=== PATIENT | male | born 1940 | race Caucasian/White ===

== ENCOUNTER 2018-09-02 16:54 | Emergency (ER) | payer MEDICARE ==
[~2018-09-02] VITALS: Ht 188 cm; Wt 84.8 kg
[2018-09-02] MEDS ORDERED: SYNTHROID88 MCG PO (17:10)
== END 2018-09-02 18:15 | disposition home or self-care (01) ==
LOC: ED 16:54
DX: H53.9 Unspecified visual disturbance (principal); E11.9 Type 2 diabetes mellitus without complications; E03.9 Hypothyroidism, unspecified; Z87.891 Personal history of nicotine dependence; Z79.899 Other long term (current) drug therapy
CPT/HCPCS: 99283

== ENCOUNTER 2018-10-24 21:08 | Emergency (ER) | payer MEDICARE ==
[~2018-10-24] VITALS: Ht 188 cm; Wt 84.8 kg
[~2018-10-24 21:08] MED LIST: SYNTHROID88 MCG PO
[2018-10-24] MEDS ORDERED: MELOXICAM15 MG PO (23:28)
[2018-10-24] MEDS ORDERED: PERCOCET 5-3251 EACH PO (23:28)
== END 2018-10-24 23:39 | disposition home or self-care (01) ==
LOC: ED 21:08
DX: M54.42 Lumbago with sciatica, left side (principal); E11.9 Type 2 diabetes mellitus without complications; E03.9 Hypothyroidism, unspecified; Z87.891 Personal history of nicotine dependence; Z79.899 Other long term (current) drug therapy; Z88.5 Allergy status to narcotic agent
CPT/HCPCS: 72131; 96372; 99283-25; J1885

== ENCOUNTER 2018-11-26 14:39 | Emergency (ER) | payer MEDICARE ==
[~2018-11-26] VITALS: Ht 188 cm; Wt 84.8 kg
[~2018-11-26 14:39] MED LIST changes: +MELOXICAM15 MG PO; +PERCOCET 5-3251 EACH PO
== END 2018-11-26 16:12 | disposition home or self-care (01) ==
LOC: ED 14:39
DX: K56.41 Fecal impaction (principal); E11.9 Type 2 diabetes mellitus without complications; E03.9 Hypothyroidism, unspecified; Z88.5 Allergy status to narcotic agent; Z79.899 Other long term (current) drug therapy
CPT/HCPCS: 99283

== ENCOUNTER 2019-07-15 06:25 | Day surgery (SDC) | payer MEDICARE ==
--- NOTE | 2019-07-14 14:23 | EKG ---
[facility] [address] [facility] [place] [address] Signed Normal sinus rhythm Right bundle branch block Left anterior fascicular block Bifascicular block Abnormal ECG No previous ECGs available Confirmed by JASPREET HUFF MD ([id number]) on 07/14/2019 2:23:29 PM Electronically Signed By: JASPREET HUFF MD 07/14/19 1423 PATIENT NAME: POLI ROSS Electrocardiogram DATE OF : 36 PHYSICIAN: JASPREET HUFF MD REPORT #: [id number] REPORT IS CONFIDENTIAL AND NOT TO BE RELEASED WITHOUT AUTHORIZATION
[~2019-07-15] VITALS: Ht 185.4 cm; Wt 88.9 kg
[~2019-07-15 06:25] MED LIST changes: +LASIX20 MG PO; +LOSARTAN POTAS100 MG PO
--- NOTE | 2019-07-15 08:17 | NUR ---
07/15/19 0817 Maria Dolores Tong 0808- PT ARRIVES TO PACU AROUSABLE WITH AN OPA IN PLACE. ATTEMPTED TO REMOVE PT'S OPA. PT DOES NOT FOLLOW INSTRUCTIONS AND HAS THE OPA CLUNCHED BETWEEN HIS TEETH. OPA LEFT IN PLACE AT THIS TIME. PT IS COUGHING AND MOVING HIS ARMS. OXYGEN SAT HIGH 90'S TO 100% ON 10L VIA MASK. OXYGEN TURNED DOWN TO 6L VIA MASK. 0811- ATTEMPTED TO REMOVE OPA AGAIN PT CONTINUES TO COUGH AND ACT ANNOYED ABOUT THE OPA BEING IN HIS MOUTH. PT CONTINUES TO NOT FOLLOW COMMANDS AND OPA IS CLUNCHED BETWEEN HIS TEETH. OPA LEFT AT THIS TIME. PT PASSING LARGE AMOUNTS OF FLATUS. 0814- OPA REMOVED WITH ASSISTANCE FROM BRAN SALEEM CRNA. OXYGEN TITRATED OFF. PT UPDATED THAT HE IS IN THE RECOVERY ROOM. PT REMAINS VERY DROWSY. 0817- PT CONTINUES TO COUGH AND PASS FLATUS.
--- NOTE | 2019-07-16 09:49 | OR ---
[facility] [address] [place], [place] [address] Signed DATE OF OPERATION: 07/15/2019 SURGEON: Bran Velasquez MD PREOPERATIVE DIAGNOSES: 1. History of rectal bleeding. 2. Significant dementia. POSTOPERATIVE DIAGNOSES: 1. Sigmoid diverticulosis. 2. Internal hemorrhoids (large nonbleeding). PROCEDURE: Total colonoscopy to cecum. ANESTHESIA: Intravenous sedation, propofol infusion; Bran Roque CRNA. INDICATION: This 79-year-old white man is a patient of Dr. Garza and has known and significant dementia. He had episodes of rectal bleeding in November of 2018. More recently, he has had no bleeding. He has no pain upon defecation. 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 He is admitted at this time to undergo colonoscopy on the basis of his bleeding. He understands the risks of bleeding, infection, and perforation. FINDINGS: The prep was excellent. Complete colonoscopy was undertaken to the cecum without question. He had scattered small diverticula of the sigmoid and left colon. There were no polyps and no sign of cancer or colitis. He did have internal hemorrhoids, which were large, but not bleeding currently. DESCRIPTION OF PROCEDURE: The patient was brought to the surgery endoscopy suite and placed in lateral decubitus position, given intravenous sedation with propofol infusional technique by the automotive parts counter associate with full cardiopulmonary monitoring. Digital rectal examination was normal. An Olympus video colonoscope was passed in the rectum and manipulated through the sigmoid where a small diverticula were noted. The scope was ultimately advanced to the cecum. The ileocecal valve appeared normal. The scope was withdrawn from that point Electronically Signed By: BRAN VELASQUEZ MD 07/16/19 0949 PATIENT NAME: POLI ROSS OPERATIVE REPORT DATE OF : 36 REPORT #: [id number] PHYSICIAN: BRAN VELASQUEZ MD PCP: SANTOS GARZA MD REPORT IS CONFIDENTIAL AND NOT TO BE RELEASED WITHOUT AUTHORIZATION [facility] [address] [place], [place] [address] Signed and examination throughout showed no sign of abnormality other than the diverticula of the left colon and sigmoid, which were few in number and small in size. Retroflexed view of the rectum confirmed relatively large internal hemorrhoids. No sign of polyps or cancer. The scope was removed. The patient was taken to recovery room in good condition. CONCLUDING DIAGNOSIS: Diverticula and internal hemorrhoids. PLAN: Recommend high-fiber diet and/or Citrucel fiber supplement. He will return to the ongoing care of Dr. Garza. MD GARETH Wheeler/MODL /[id number] cc: Santos Garza MD Copies: ~ Electronically Signed By: BRAN VELASQUEZ MD 07/16/19 0949 PATIENT NAME: POLI ROSS OPERATIVE REPORT DATE OF : 36 REPORT #: [id number] PHYSICIAN: BRAN VELASQUEZ MD PCP: SANTOS GARZA MD REPORT IS CONFIDENTIAL AND NOT TO BE RELEASED WITHOUT AUTHORIZATION
== END 2019-07-15 08:50 | disposition home or self-care (01) ==
LOC: OPS 06:25 → DS 06:25 → OPS 06:45 → DS 06:45 → OPS 08:50 → DS 08-02 07:30
PROVIDERS: Surgery
PROC: 0DJD8ZZ Inspection of Lower Intestinal Tract, Via Natural or Artificial Opening Endoscopic (ICD-10-PCS; principal; 2019-07-15 06:45)
DX: K64.8 Other hemorrhoids (principal); K57.30 Diverticulosis of large intestine without perforation or abscess without bleeding; F03.90 Unspecified dementia, unspecified severity, without behavioral disturbance, psychotic disturbance, mood disturbance, and anxiety; I25.10 Atherosclerotic heart disease of native coronary artery without angina pectoris; E03.9 Hypothyroidism, unspecified; I10 Essential (primary) hypertension; Z95.1 Presence of aortocoronary bypass graft; Z88.0 Allergy status to penicillin; Z88.5 Allergy status to narcotic agent; Z79.899 Other long term (current) drug therapy; Z82.49 Family history of ischemic heart disease and other diseases of the circulatory system; Z98.890 Other specified postprocedural states; Z87.891 Personal history of nicotine dependence
CPT/HCPCS: 36415; 71046; 80053; 85025; 93005; 93010; J2704; J7121

== ENCOUNTER 2019-08-09 16:17 | Emergency (ER) | payer MEDICARE ==
[~2019-08-09] VITALS: Ht 185.4 cm; Wt 88.9 kg
--- NOTE | 2019-08-10 10:58 | EKG ---
[facility] [address] [place] [address] Signed Sinus bradycardia Left axis deviation Right bundle branch block Abnormal ECG When compared with ECG of 13-JUL-2019 15:10, No significant change was found Confirmed by JASPREET HUFF MD ([id number]) on 08/10/2019 10:57:56 AM Electronically Signed By: JASPREET HUFF MD 08/10/19 1058 PATIENT NAME: POLI ROSS Electrocardiogram DATE OF : 36 PHYSICIAN: JASPREET HUFF MD REPORT #: [id number] REPORT IS CONFIDENTIAL AND NOT TO BE RELEASED WITHOUT AUTHORIZATION
== END 2019-08-09 19:50 | disposition home or self-care (01) ==
LOC: ED 16:17 → ER 16:18 → ED 19:50
DX: R10.13 Epigastric pain (principal); E11.9 Type 2 diabetes mellitus without complications; E03.9 Hypothyroidism, unspecified; Z87.891 Personal history of nicotine dependence; Z88.0 Allergy status to penicillin; Z88.5 Allergy status to narcotic agent; Z79.899 Other long term (current) drug therapy
CPT/HCPCS: 71045; 74177; 80053; 81001; 83690; 84484; 85025; 93005; 93010; 99284-25

== ENCOUNTER 2020-11-13 19:26 | Inpatient (IN) | payer MEDICARE ==
[~2020-11-13] VITALS: Ht 185.4 cm; Wt 92.4 kg
--- NOTE | 2020-11-13 22:35 | EKG ---
[facility] [address] [place] [address] Signed Normal sinus rhythm Left axis deviation Right bundle branch block Abnormal ECG When compared with ECG of 09-AUG-2019 17:34, Vent. rate has increased BY 41 BPM Confirmed by JAKE MELGAR MD ([id number]) on 11/13/2020 10:34:52 PM Electronically Signed By: JAKE MELGAR MD 11/13/20 2235 PATIENT NAME: POLI ROSS STACIA Electrocardiogram DATE OF : 36 PHYSICIAN: JAKE MELGAR MD REPORT #: [id number] REPORT IS CONFIDENTIAL AND NOT TO BE RELEASED WITHOUT AUTHORIZATION
[2020-11-13] MEDS ORDERED: LASIX20 MG PO (23:24)
[2020-11-13] MEDS ORDERED: LEVOTHYROXINE25 MC1 PO (23:24)
--- NOTE | 2020-11-14 01:20 | NUR ---
PT TO ROOM 115 FROM ED WITH NUT AND BOLT ASSEMBLER AT 2345. PT DAUGHTER UP TO FLOOR WITH PT. PT PLEASANTLY CONFUSED. UNABLE TO ANSWER ORIENTATION QUESTIONS. 3PA TO TRANSFER FROM STRETCHER TO BED, PT ASHLEIGH WELL. SCD'S PLACED TO RIGHT LEG. PT PLACED ON PULSE OX. SpO2 NOTED TO BE 88-91% ON RA. 2L/NC PLACED. 16 F MCMILLAN PLACED BY CONFERENCE CENTER MANAGER WITH IMMEDIATE RETURN OF CLEAR YELLOW URINE. PT ASHLEIGH WELL. PT GRABBING LEFT HIP AND MOANING. PRN ADMINISTERED FOR PAIN PER EMAR. LLE CMS INTACT. WARM BLANKET PROVIDED. PT DAUGHTER BACK TO ROOM BUT IS NOT STAYING THE NIGHT. PT NOTED TO BE PULLING AT IV'S AND MCMILLAN CATH. CONSUMER INSIGHT MANAGER TO DESK FOR OBSERVATION.
--- NOTE | 2020-11-14 01:30 | NUR ---
THIS LIVESTOCK BUYER TO ASSUME OBSERVATION OF PT FOR RN, PT RESTING AT THIS TIME, DAUGHTER LEAVING FOR THE NIGHT
--- NOTE | 2020-11-14 02:14 | NUR ---
OBSERVED PT MOVING HANDS AROUND, PULSEOX PULLED OFF, THIS BODY AND FENDER MECHANIC AND RN DONNING PPE TO GET INTO RM, PT PULLED ON IV BEFORE I COULD STOP HIM, FIXED PTs GOWN, PUT AN EXTRA BLANKET DOWN TO PREVENT PT PULLING OUT MCMILLAN CATH, NO FURTHER NEEDS AT THIS TIME
--- NOTE | 2020-11-14 02:38 | NUR ---
PULSE OX NOTED TO BE OFF. IN TO PT ROOM TO ASSESS. PT FOUND TO BE PULLING GOWN, BLANKET, AND IV. ATTEMPTED TO REDIRECT FROM DOOR WAY. PPE DONNED AND BY THE TIME THIS RN AND DOOR AND ARRIVAL ATTENDANT WERE ABLE TO ENTER ROOM PT HAD PULLED IV FROM LEFT FOREARM. TIP INTACT. IV FLUIDS MOVED TO RIGHT HAND. IV WRAPPED IN COBAN. PT MOANING AND GRABBING LEFT HIP. PRN ADMINISTERED FOR PAIN. PULSE OX IN PLACE. MCMILLAN PATENT DRAINING YELLOW URINE. BED ALARM FOR SAFETY. DOOR AND ARRIVAL ATTENDANT AT DESK TO OBSERVE.
--- NOTE | 2020-11-14 03:00 | NUR ---
PT FIGETY AND THIS AEROSPACE QUALITY ENGINEER NOTED PULSEOX UNEVEN, IN RM TO CHECK ON PT, PUT PTs NC ON MULTPLE TIME AND SAT WITH PT UNTIL PT WAS RESTING AGAIN, RETURN TO OBSERVING FROM NURSING STATION, NO FURTHER NEEDS
--- NOTE | 2020-11-14 03:58 | NUR ---
IN TO SIT WITH PT PT WAS FIGETY AGAIN, NASAL CANNULA REAPPLIED TO PT, PT ATTEMPTS TO PULL AT MCMILLAN CATH, REDIRECTING PT EACH TIME, LEFT RM TO RESUME WATCH AT NURSING STATION AT THIS TIME
--- NOTE | 2020-11-14 05:00 | NUR ---
THIS CAN DOFFER CONTINUES TO MONITOR PT FROM NURSING KRISTA, PT IS RESTING, RR EVEN
--- NOTE | 2020-11-14 05:08 | NUR ---
PT RESTING IN BED WITH EYES CLOSED, NAD. SpO2 97% ON 2L/NC. IVF INFUSING. MCMILLAN PATENT.
--- NOTE | 2020-11-14 05:45 | NUR ---
IN WITH RN TO GET VITALS, EMPTY MCMILLAN, ASSIST RN WITH LAB DRAW, NO FURTHER NEEDS AT THIS TIME, PT IS BACK TO RESTING
--- NOTE | 2020-11-14 06:29 | NUR ---
VS AND I&O COMPLETE. PRN ADMINISTERED FOR ELEVATED TEMP AND SIGNS OF PAIN. SCHEDULED LABS DRAWN PER PROTOCOL BY BUNKER WORKER. PT REMAINS PLEASANTLY CONFUSED. IVF INFUSING. 2L/NC IN PLACE. SpO2 98%. BED ALARM FOR SAFETY. PT IN VIEW OF NURSES STATION.
--- NOTE | 2020-11-14 06:45 | NUR ---
PT REMAINS IN VIEW OF THIS ENGINEERING AND DEVELOPMENT DIRECTOR, PT IS RESTING AT THIS TIME
--- NOTE | 2020-11-14 07:50 | NUR ---
Spoke with Dr Harper about dc plan for this patient. Pt is covid + and there are 3 SNFs in 500 mile radius taking Covid pt. confirms pt will need placement for 6-8 weeks for NWB status following surgery. Pt more than likely will discharge on Friday or Friday. Will contact SNFs for placement. also needs to speak with daughter to explain surgery and have consents signed. Will set up conference at 5:30 when is available to meet.
--- NOTE | 2020-11-14 07:53 | NUR ---
REPORT RECEIVED FROM MIRTHA LEES. PT IN BED, VISIBLE FROM NURSING STATION. BED ALARM IN PLACE FOR SAFETY AND CPOX ON. SATURATIONS 97% ON 2L NC. LR INFUSING AT 75ML/HR. PULSE IS 60. RESPIRATIONS EQUAL AND NON-LABORED. FOELY IN PLACE.
--- NOTE | 2020-11-14 08:29 | NUR ---
DR BROWN IN TO ROUND ON PT.
--- NOTE | 2020-11-14 09:38 | NUR ---
ASSESSMENT COMPLETED. LUNGS CLEAR, BOWEL TONES HYPOACTIVE. ABDOMEN SLIGHLY DISTENDED/FIRM PT YELLS OUT "OUCH" WHEN PRESSURE IS PLACED ON ABDOMEN. PT UNABLE TO REPORT WHEN LAST BOWEL MOVEMENT WAS. CATHIE-CARE DONE. REDNESS NOTED TO LEFT LOWER BLACK WITH SCAILING PRESENT. PT APPEARS PAINFUL WITHMOVEMENT BUT IS UNABLE TO PROVIDED PAIN RATING. NON-VERBAL SCORE OF 5/10. REPOSITIONING PROVIDED BUT NO PAIN MEDICATION PT FALLS ASLEEP WHEN NOT INTERACTING WITH STAFF. TOSHIA HOSE PLACED BILATERALLY, AND FOOT PUMP TO LEFT FOOT. IMAGING IN FOR ULTRASOUND TO LOWER EXTREMITIES. REMDESIVIR INFUSED AND PT NOW WITH LR INFUSING AT 75ML/HR. HEEL PROTECTORS PLACED. 2L NC STILL IN PLACE. BED ALARM IN PLACE.
[2020-11-14] MEDS ORDERED: COLACE100 MG PO (09:45)
[2020-11-14] MEDS ORDERED: STROVITE FORTE1 EACH PO (09:45)
[2020-11-14] MEDS ORDERED: LOW DOSE ASPIRI81 MG PO (09:49)
[2020-11-14] MEDS ORDERED: MOTION SICKNESS25 M1 PO (09:49)
--- NOTE | 2020-11-14 10:18 | NUR ---
PT NOTED TO BE RESTLESS IN BED, SQUIRMING AND FIDGETING AROUND. THIS NURSE TO BEDSIDE AND PT GRABBING AT LEFT LEG SAYING "OUCH". NON-VERBAL SCALE USED TO RATE PAIN. PAIN IS 5/10 PER SCALE. PRN MEDICATION ADMINISTERED. BED ALARM ON. OFFERED WATER WHICH PT REFUSED.
--- NOTE | 2020-11-14 10:27 | NUR ---
Received call from daughter Ashley and she is available to meet with Dr. Harper at 5:30 and updated about pt needing SNF. [facility] is [facility]. I had spoken with them on Friday and they were closing their unit due to staff and not accepting pts. Will check with [facility], [facility], and [facility] [place] for [facility]. Daughter preference is [place] first, [place] second for placement.
--- NOTE | 2020-11-14 11:20 | NUR ---
REPOSITIONED PT TO RIGHT SIDE WITH TWO PILLOWS UNDER LEFT SIDE.
--- NOTE | 2020-11-14 11:59 | NUR ---
MED REC COMPLETE
--- NOTE | 2020-11-14 12:20 | NUR ---
PT RESTLESS IN BED HOLDING LEG. PRN OFIMEV ADMINSTERED. LR DECREASED TO 50ML/HR PER NEW ORDER. CPOX IN PLACE. SATURATIONS 97% ON 2L NC. BED ALARM IN PLACE. VISIBLE FROM NURSING STATION.
--- NOTE | 2020-11-14 13:50 | NUR ---
DUE TO PRECAUTIONS, I AM UNABLE TO VISIT PT IN PERSON. HE IS SCHEDULED FOR SURGERY. WILL FOLLOW UPON HIS RETURN
--- NOTE | 2020-11-14 14:00 | NUR ---
IN TO ROUND ON PT. REAL ESTATE SUBAGENT IN T OASSIST IN REPOSITIONING. PT APPEARS COMFORTABLE WITH BODY RELAXED. ABX STARTED. ASSESSMENT COMPLETED. TEDHOSE, SCD/FOOT PUMP IN PLACE. MCMILLAN DRAINING YELLOW URINE. CRACKLES ASCULTATED ON RLL OF LUNG. PT REMOVED OXYGEN. SPO2 AT 86-89% WITH VITALS. 2L REPLACED. SPO2 NOW 98%. BED ALARM IN PLACE. PT HAS NOT ATTEMPTED TO EXIT BED THIS SHIFT. VITALS STABLE. VISIBLE FROM NURSING STATION.
--- NOTE | 2020-11-14 16:00 | NUR ---
Called and left message for Eamon at [facility]. [phone] and requested bed availability. I was unable to reach Eamon, but was able to speak with Emily and she stated they do have bed availability. Eamon will return my call, they do take Covid + pt and have rehab.
--- NOTE | 2020-11-14 16:48 | NUR ---
PT NOTED TO BE CALLING OUT AND SQUIRMING IN BED. THIS NURSE TO BEDSIDE. PT UNABLE TO ANSWER IF IN PAIN BUT CALLING OUT,"OUCH, OUCH" HOLDING ONTO LOWER ABDOMEN AND PENIS. WHEN ASKED WHERE HE HURT PT PUT HANDS ON BLABBER AREA AND PENIS, STATING "HERE". PT BLADDER SCANNED. O MLS IN BLADDER. SCANT AMOUNT OF PURUENT DRAINAGE NOTED FROM PENIS TIP. CATHIE CARE COMPLETED. PT REPOSITIONED IN BED AND FENTANYL 25MCG ADMISNTERED. BED ALARM ON AND PT VISIBLE FROM NURSING STATION.
--- NOTE | 2020-11-14 16:55 | NUR ---
PT NOTED TO HAVE BRADICARDIC EPISODES WHILE SLEEPING, DOWN TO 41 AT TIMES. TO BEDSIDE TO ASSESS PT. VITALS TAKEN AND BLOOD PRESSURE STABLE. PT WOKE UP EASY AND HEART RATE RETURNED TO 70-80'S THEN BRADYS DOWN ONCE ASLEEP. DR MELGAR NOTIFIED. ORDERS TO JUST MONITOR.
--- NOTE | 2020-11-14 18:14 | NUR ---
PT CALLING OUT, GRABBING AT LEFT HIP. PRN ORIRMEV ADMINISTERED. REPOSITIONED PT IN BED. TEDHOSE, SCD'S, HEEL PROTECTORS ALL IN PLACE. LR AT 50 INFUSING WNL. 2L NC IN PLACE SPO2 AT 99%. VITALS TAKEN AND STABLE. FEOLEY EMPTIED FOR 150ML YELLOW URINE. BED ALARM IN PLACE. VISIBLE FROM NURSING STATION.
--- NOTE | 2020-11-14 19:43 | NUR ---
REPORT RECEIVED FROM DAY SHIFT RN. PT LYING IN BED WITH EYES CLOSED. RESPIRATIONS EVEN. IVF INFUSING. O2 2L/NC IN PLACE. SpO2 98%. BED ALARM ON. MEDIA LAW FACULTY MEMBER AT DESK FOR CLOSE OBSERVATION.
--- NOTE | 2020-11-14 20:00 | NUR ---
Pt repositioned to left side, with pillow support. block cath. care done. no further assitance needed at this time.
--- NOTE | 2020-11-14 20:14 | NUR ---
IV PUMP ALARMING. NEW BAG FLUIDS HUNG. REPOSITIONED PT WITH PILLOWS. PT APPEARES TO BE COMFORTABLE AT THIS TIME. SCD'S/TEDS/HP IN PLACE. HIPOLITO PATENT. LLE CMS INTACT.
--- NOTE | 2020-11-14 20:45 | NUR ---
Pt removed nasal canula, this staff placed the NC back in nose. Pt c/o pain, RN notified. Telly battery replaced. No further assistance at this time.
--- NOTE | 2020-11-14 21:14 | NUR ---
EVENING ASSESSMENT COMPLETE. SCHEDULED IV ABX INFUSING. PT REPEATS "OW, OW". PRN FOR PAIN ADMINISTERED PER EMAR. TEMP 100. HR 48-51. 2L/NC IN PLACE. Sp02 91%. PT APPEARS TO BREATH MOSTLY THROUGH HIS MOUTH. LLE CMS INTACT. SCD'S/TEDS/HP IN PLACE. ASSISTED PT TO REPOSITION IN BED AND DRINKS OF FRESH WATER.
--- NOTE | 2020-11-14 21:52 | NUR ---
pt repositioned to right side, with pillow support. CPOX replaced. no further assistance needed at this time.
--- NOTE | 2020-11-14 23:21 | NUR ---
Pt repositioned supine. displaying signs of pain. rn notified.
--- NOTE | 2020-11-14 23:55 | NUR ---
PT NOTED TO HAVE TENSE FACIAL EXPRESSIONS AND RESTLESS IN BED. ALSO SAYS "OW, OW" OCCASIONALLY AND GUARDS LEFT HIP. IV PRN ADMINISTERED FOR PAIN ORDERED. ASSISTED PT TO REPOSITION IN BED WITH 2PA. PT REPORTS BEING COLD. TEMP 98.6 ORALLY. WARM BLANKET PROVIDED. PT APPEARS COMFORTABLE AND RESTING AT THIS TIME. PT IN VIEW OF GALLERY OR MUSEUM ATTENDANT FOR CLOSE OBSERVATION.
--- NOTE | 2020-11-15 01:00 | NUR ---
PT RESTING IN BED WITH EYES CLOSED. RESPIRATIONS EVEN. IVF INFUSING. SpO2 96-98% ON 2L/NC. HR 60'S.
--- NOTE | 2020-11-15 03:37 | NUR ---
Pt repositioned, left micro turn. pillow support.
--- NOTE | 2020-11-15 03:53 | NUR ---
PT SHOWING SIGNS OF PAIN. IV PRN FOR PAIN ADMINISTERED PER EMAR. PT REPOSITIONED IN BED. IVF INFUSING. PULSE OX IN PLACE. SpO2 97% ON 2L/NC. RESPIRATIONS EVEN. SCD'S/TEDS/HP IN PLACE. LLE CMS INTACT. PT REMAINS NPO.
--- NOTE | 2020-11-15 06:02 | NUR ---
SCHEDULED LABS DRAWN WITHOUT DIFFICULTY. PT ASHLEIGH WELL. REPOSITIONED IN BED WITH 2PA. ASSISTED WITH ORAL CARE. IV ABX INFUSING. IV PRN ADMINISTERED FOR SIGNS OF LEFT HIP PAIN. BARREL RIBS SOLDERER REMAINS AT DESK FOR CLOSE OBSERVATION.
--- NOTE | 2020-11-15 06:08 | NUR ---
ATTEMPT TO CALL pt'S DAUGHTER TO DISCUSS DECISION FOR SURGERY. MD AND SURGERY NURSES PHONED AND UPDATED THAT NO DECISION HAS BEEN RELAYED TO [facility].
--- NOTE | 2020-11-15 07:01 | NUR ---
PHONE CALL FROM pt'S DAUGHTER ARA. FAMILY DECIDED TO DECLINE SURGICAL INTERVENTION. DAY SURGERY NABEEL RODRIGUEZ NOTIFIED. ATTEMPT TO CALL MD, NO ANSWER, VOICEMAIL LEFT.
--- NOTE | 2020-11-15 07:01 | NUR ---
Notified by Dr. Yao Harper as I was leaving the hospital last night, he met with pt's daughter. Daughter and are now considering no surgery for this pt and placing him on comfort care. Will follow up with family today.
--- NOTE | 2020-11-15 07:26 | NUR ---
PHONE CALL FROM MD TO NABEEL SHANNON. TELEPHONE ORDER TO ADVANCE DIET TOLERATED. MD WILL CALL AND CANCEL SURGERY.
--- NOTE | 2020-11-15 07:30 | NUR ---
RESPONDING TO PATIENTS CRIES pt heard crying out from his room at this time, this RN right outside the door. pt crying out " oh! ohhh! Ow! oh come on!" when asked if he was in pain, pt responds with "yes! oh man, ow!" pt continues crying out, grimacing and squirming in his bed. pt HR in the 70s, BP 146/115 (he won't be still for measurement), RR 22, spo2 88% on 2L NC, and afebrile at this time. pt given PRN pain med as ordered. pt oxygen titrated up to 4L NC. pts o2 is 93% on 4L NC, BP 132/42 (65), HR 50, RR 18, and pt is no longer crying out, still spontaneously opens eyes, and responds to verbal stimuli. pt now resting in bed, breathing even and unlabored, call light in reach, bed alarm on.
--- NOTE | 2020-11-15 08:00 | NUR ---
PATIENTS OXYGEN TITRATED BACK DOWN AT THIS TIME now that pain is controlled for the time. pts o2sats taken and pt is 98% on 4L NC. pt titrated down to 2L NC at this time, pt maintains >94% oxygen for over one min at 2L NC. pt in bed, table and call light in reach. bed alarm on. pt visible from nurses station.
--- NOTE | 2020-11-15 09:00 | NUR ---
MED PASS + ASSESSMENT pt assessment complete, at this time. pt VSS, breathing even and unlabored. pt 02sats 91% on 2L NC, oxygen not titrated down at this time. pt alert but orientation not testable due to dementia. pt can greet and answer some questions, but inconsistently. pt able to have fentnyl patch applied to left shoulder. pt able to take PRN tylenol and other pills crushed and in applesauce. pt able to take all meds this way, without difficulty, after failing to be able to swallow one tab (pt had continued to accidentally spit the tablet out when trying to drink from the straw, no coughing or choking, just seemingly confused by the task). pt able to eat about 40% of his breakfast of minced softened eggs, sausage, and applesauce at this time. pt able to grab the water and drink by himself, but inconsistently. pt able to grab his spoon, but not to feed himself at this time. pt currently in bed, resting with eyes closed, breathing even and unlabored, no grimace or writhing at this time, table and call light in reach, bed alarm on, pt visible from nurses station.
--- NOTE | 2020-11-15 09:41 | NUR ---
SPOKE WITH PATIENT DAUGHTER ARA GRIER REGARDING DC FROM FACILITY CARE PLAN. ARA STATES THAT HER AND FAMILY WILL BE CONTACTING LOCAL CARE FACILITIES TODAY TO EXPLORE LOCAL PLACEMENT AFTER DISCHARGE IN [place]. ARA STATES HAS FOUND THAT THE PATIENT DOES NOT HAVE SECONDARY INSURANCE COVERAGE AT THIS TIME. ARA AND I DISCUSSED LENGTH OF STAY AVAILABLE AT [facility] IS DEPENDENT ON THE PATIENTS ABILITY TO PARTICIPATE IN PT FOLLOWING A 20 DAY ADMISSION FOR COVID 19. ARA ADVISED THAT I WOULD FAX PAPERWORK TO MERGED WITH [facility] TODAY AND UPDATE HER SOON WE HAVE AN ANSWER. ARA REQUEST NOTES FAXED TO [facility] FOR HELP WITH PAYMENT OF PATIENTS ER VISIT.
--- NOTE | 2020-11-15 10:00 | NUR ---
ROUNDING (NURSE IN ROOM WITH PATIENT) pt appears content and relaxed at this time. pt has on his fentny patch and had PRN tylenol, this appears to be controlling his pain at this time. pt breathing even and unlabored, table and call light in reach. o2sats >93% on 2L NC. pt forgets that he needs it on and sometimes tries to remove the oxgen tubing. pt also will wake at times and pull at his IV site. pt easily redirects. pt occasionally will fidget and attempt to reach for his block tubing. pt redirects. pt in bed, bed alarm on, pt visible from nurses station.
--- NOTE | 2020-11-15 10:30 | NUR ---
FACE SHEET, H&P, PROGRESS NOTES AND COVID TEST RESULTS FAXED TO [facility] IN [facility] FOR INTAKE REVIEW.
--- NOTE | 2020-11-15 11:58 | NUR ---
LUNCH (NURSE IN THE ROOM WITH PATIENT) pts lunch arrived. pt refuses to feed himself, but will take a few bites of his pudding and soup from me, also will drink his milk when offered. pt alert and calm at this time, watching TV. pt attempts to talk at different times, sometimes speech is appropriate to context and other times is non-sensible. pt currently sitting up in bed, having lunch. pt refuses more bites at this time. table and call light in reach, bed alarm on. pt visible from nurses station.
--- NOTE | 2020-11-15 12:35 | NUR ---
1:1 WITH PATIENT WHILE HIS 1:1 IS AT LUNCH. PATIENT IN BED WATCHING TV. THIS RUG CLIPPER IS OFFERING HIS FOOD AND WATER
--- NOTE | 2020-11-15 13:05 | NUR ---
TURN + NEW CHUCKS PAD (NURSE IN ROOM WITH PATIENT 1:1) in room with pt at this time. pt alert and appears calm and unbothered at this time. pt sitting up in bed, [employer] SALES REPRESENTATIVE informs me that he finished 100% of his lunch while I was out. pt given new fresh water. pt turned and x1 BM smear cleaned up at this time, new chucks pad placed. pt repositioned in bed to comfort. pt resting in bed, semi-fowlers, alert, watching TV at this time. pt pulls at his IV, easily redirected. pt fidgets with his nasal cannula, NC replaced and pt redirected. pt showing no s/sx of being in pain at this time, facial expressions peaceful, no moaning or calling out, arms and legs at rest. pt o2sat 93% on 2L NC at this time. pt in bed, bed alarm on, this RN at bedside.
--- NOTE | 2020-11-15 13:10 | NUR ---
PER PERNELL AT [facility] CHART NOTES RECVD FOR PATIENT PLACEMENT. CHART CURRENTLY IN REVIEW WITH FACILITIES DNS. PERNELL STATES THEY WILL CALL WHEN A DECISION HAS BEEN MADE.
--- NOTE | 2020-11-15 13:54 | NUR ---
PATIENT SHIFT REPORT pt being treated for pain control post left humerus fracture from a GLF. pts surgery cancelled and plan currently is to tx pain. pt is on 2L NC today, desats with sleep at times. pt Q2 turns. pt has fentanyl patch on his left shoulder and PRN tylenol. pt takes tablets crushed in applesauce. pt off IVF and drinking adequately at this time. pt has had x2 smears for us today, but unknown last BM. pt VSS, HR between 50s-70s at rest. pt on tele #1 CPOX. pt Covid +, precautions used. pt had been alert and pleasant with cares today, disoriented due to baseline dementia. pt is voiding quantity sufficient at this time, though on the lower end of output.
--- NOTE | 2020-11-15 14:00 | NUR ---
ASSESSMENT pt assessment complete, VSS. pt o2sats 94% on 2L NC at this time. pt breathing even and unlabored. pt appears calm and undistressed at this time. pt turned in bed at this time, pillow under opposite hip. pt tolerated well. pt resting in bed, table and call light in reach. pt getting IV ABX infused as ordered. pt resting now with eyes closed, breathing even and unlabored, table and call light in reach. Bed alarm on, pt visible from nurses station. this RN at bedside.
--- NOTE | 2020-11-15 14:58 | NUR ---
PT UNDER PRECAUTIONS, WILL FOLLOW ABLE
--- NOTE | 2020-11-15 15:29 | NUR ---
Spoke with Mike from [facility]. Pt has been cleared by their nursing staff and he is requesting auth from the State as they contract with the state to take covid pts. He states pt should be able to admit to them on Friday if he receives ok from the state. Discussed daughter's dc plan is for pt to return home or possible admit to hospice on discharge from SNF. Per Mike, pt may admit for 20 days from date of + Covid swab and then will need to dc if he is symptom free from Covid. Daughter was made aware of the above and states understanding. She also states she would like to transport him in her SUV.
--- NOTE | 2020-11-15 15:44 | NUR ---
ROUNDING (NURSE IN ROOM WITH PATIENT) pt appears content and relaxed at this time. pt has on his fentny patch and this appears to be controlling his pain at this time. pt breathing even and unlabored, table and call light in reach. o2sats >94% on 2L NC. pt forgets that he needs it on and sometimes tries to remove the oxgen tubing. pt also will wake at times and pull at his IV site. pt easily redirects. pt occasionally will fidget and attempt to reach for his block tubing. pt redirects. pt in bed, bed alarm on, pt visible from nurses station.
--- NOTE | 2020-11-15 16:29 | NUR ---
ROUNDING (NURSE IN ROOM WITH PATIENT) pt appears content and relaxed at this time. pt has on his fentanyl patch and this appears to be controlling his pain at this time. pt breathing even and unlabored, table and call light in reach. o2sats >94% on 2L NC. pt forgets that he needs it on and sometimes tries to remove the oxgen tubing. pt also will wake at times and pull at his IV site. pt easily redirects. pt occasionally will fidget and attempt to reach for his block tubing. pt redirects. pt in bed, bed alarm on, pt visible from nurses station.
--- NOTE | 2020-11-15 17:47 | NUR ---
DINNER + TURN (RN IN ROOM WITH PATIENT) pt able to eat about 80% of his dinner. pt was unable to consistently feed himself, but was able to eat well with feeding. pt showing no signs of difficulty swallowing. pt repositioned in bed, turned at this time. pt appears calm and slightly restless at this time, making occasional moans. PRN tylenol given at this time. pt able to take med crushed in gravy. pt given fresh water. pt in bed, table and call light in reach. bed alarm on. RN in room with patient.
--- NOTE | 2020-11-15 18:35 | NUR ---
ROUNDING + TURN (THIS RN IN ROOM WITH PATIENT) pt turned at this time. repositioned to comfort. pt appears calm and showing no s/sx of being in pain at this time. pt VSS. pt resting in bed, eyes closed, breathing even and unlabored. table and call light in reach, bed alarm on. pt visible from nurses station, this RN at bedside with pt.
--- NOTE | 2020-11-15 19:34 | NUR ---
PATIENT RESTINNG QUIETLY IN BED AWAKE. PATIENT HAS NO CURRENT CARE NEEDS AND NABEEL SWANSON IS ON 1:1 WITH PATIENT AT THIS TIME.
--- NOTE | 2020-11-15 20:21 | NUR ---
Pt repositioned, micro turn to the right. pillow support.
--- NOTE | 2020-11-15 21:53 | NUR ---
PATIENT CONFIRMED THAT HE IS COMFORTABLE VERBALLY. PATIENT TURNED TO HIS BACK, SCD ON RIGHT LEG AND FOOT PUMP ON THE LEFT FOOT. IV FLUSHES WELL AND EVENING ANTIBIOTIC STARTED. UNABLE TO LISTEN TO BOWEL AND LUNG SOUNDS DUE TO WEARING PAPR. PATIENT'S SATS AT 97% RESPIRATIONS ARE UNLABORED, REGULAR, AND EVEN. RT JUST FINISHED ASSESSING PATIENT AND NO TREATMENTS GIVEN. YFN ARNOLD CONTINUES TO MONITOR PATIENT 1:1.
--- NOTE | 2020-11-15 22:58 | NUR ---
PATIENT'S IV WAS ALARMIMG DISTAL OCCLUSION. WENT IN PATIENT'S ROOM IN PAPR. ASSESSED PATIENT'S IV AND GOT IT STARTED AGAIN. PATIENT HAD NO OTHER NEEDS AT THIS TIME AND CONFIRMED VERBALLY THAT HE WAS COMFORTABLE. YFN ARNOLD CONTINUES TO MONITOR PATIENT 1:1.
--- NOTE | 2020-11-16 00:30 | NUR ---
Pt repositioned, micro turn right, with bilateral pillow support. f/c care done. bed alarm on, bed in lowest position. no further assitance needed at this time.
--- NOTE | 2020-11-16 01:26 | NUR ---
PATIENT RESTING QUIETLY, EYES CLOSED, RESPIRATIONS REGULAR AND EVEN, CALL LIGHT IS IN REACH. PATIENT REMAINS ON 1:1 WITH YFN ARNOLD OBSERVING.
--- NOTE | 2020-11-16 01:50 | NUR ---
THIS RN ASSUMING 1:1 CARE FOR YFN ARNOLD SO SHE CAN GO TO LUNCH. PATIENT'S ASSESSMENT IS UNCAHNGED FROM THE BEGINING OF THE SHIFT. 02 SATS REMAIN AT 97% ON ROOM AIR.
--- NOTE | 2020-11-16 02:30 | NUR ---
Pt repositioned, supine, weight shifted body alighned center in bed. Pt calling out in pain prior to reposition. c/o pain in leg. rn notified. pt removed nc. NC put back in nose. bed alarm on, no further assistance at this time.
--- NOTE | 2020-11-16 03:26 | NUR ---
PATIENT VERBALIZED TO YFN ARNOLD THAT HE WAS HURTING. PATIENT WAS ASLEEP BY THE TIME THIS RN GOT TO THE ROOM WITH TYLENOL 1,000MG PO. WENT IN THE ROOM AND TALKED TO THE PATIENT WHO WOKE UP QUICKLY AND PATIENT VERBALIZED TO THIS RN WELL THAT HE WAS HURTING AND THE TYLENOL WAS GIVEN CRUSHED UP IN SOME DIET PUDDING AND PATIENT TOOK IT WITHOUT DIFFICULTY. REPOSITION PATIENT'S LEG A LITTLE IN THE BED AND ASKED PATIENT IF THE PAIN WAS BETTER AND HE SAID YES. I ASKED PATIENT IF HE NEEDED ANYTHING ELSE AND HE SAID NO. EXITED PATIENT'S ROOM AND YFN ARNOLD REMAINS ON 1:1 OBSERVATION.
--- NOTE | 2020-11-16 06:06 | NUR ---
PT REPOSITIONED TO [facility] AND TURNED RIGHT WITH PILLOW SUPPORT. NEW CHUX. PT MOANING IN PAIN. RN NOTIFIED
--- NOTE | 2020-11-16 06:40 | NUR ---
[id number] ENTERED ROOM WITH YFN ARNOLD STILL PRESENT IN THE ROOM. PATIENT'S SATS HAD DROPPED TO 75% ON 2L/NC, O2 INCREASED TO 6L/NC AND SATS CAME UP TO 86%. SWITCHED TO OXYMASK AT 6L AND SATS CAME UP TO 97%. YNF ARNOLD HELPED HOLD PATIENT'S HAND SO THIS RN COULD DRAW AM LABS. PATIENT PULLED UP IN THE BED AND REPOSITIONED. PATIENT HAVING C/O PAIN SINCE I ENTERED THE ROOM. LEAVING ROOM TO CONTACT MD FOR PAIN ORDERS PATIENT HAS NO OTHER MEDS AT THIS TIME FOR BREAK THROUGH PAIN.
--- NOTE | 2020-11-16 07:00 | NUR ---
pt calling out in pain. pt removed oximask. this staff placed oximask back on pt, pulled pillow from left side and elevated the hob ten degrees. pt appears to be comfortable, but pt is still verbally c/o pain. RN notified. BA on, call light in reach, bed in lowest position. no further assistance needed at this time.
--- NOTE | 2020-11-16 07:02 | NUR ---
CALLED FOR SOMETHING FOR PATIENT FOR BREAK THROUGH PAIN. ORDERED 5/325MG NORCO X1 Q4/HRS FOR PAIN. ALSO ORDERED 20MG IV LASIX X1 NOW.
--- NOTE | 2020-11-16 07:09 | NUR ---
CALLED BACK IT IS LISTED THAT PATIENT HAS N/V WITH NORCO AND THIS WAS CANCELLED AND 25MCG FENTNYL IV WAS ORDERED X1 NOW.
--- NOTE | 2020-11-16 07:10 | NUR ---
SHIFT REPORT FROM LIV LEES INCLUDED: pt had a 1:1 last night and will NOT have one today. pt had a fairly uneventful evening. pt had some breakthrough pain this morning, gastroenterology nurse RN currently in room giving PRN pain meds and lasix as ordered. pt breathing even and unlabored, o2sats 98% on 6L oxymask. bed alarm on. pt visible from nurses station.
--- NOTE | 2020-11-16 07:37 | NUR ---
PATIENT GIVEN 25MCG OF IV FENTANYL SIVP AND 20MG IV LASIX SIVP FOR PAIN, THEN IV WAS SALINE LOCKED. REPORT ALREADY GIVEN TO NABEEL SWANSON.
--- NOTE | 2020-11-16 08:00 | NUR ---
MED PASS + ASSESSMENT + RESPONDING TO PATIENT CRYING OUT pt crying out in pain at this time yelling "oh god! hey! oh owww please, oh god." pt cannot directly answer pain questions. pt breakfast here. pt changed and fabricio care done, no BM. pt turned at this time. pt fed by WOODS OVERSEER at this time. pt able to take all meds without difficulty. pt in bed, side rails up, bed alarm on, table and call light in reach.
--- NOTE | 2020-11-16 09:27 | NUR ---
HELPED HIM EAT AND DRINK WATER. WASHED HIS FACE AND BRUSHED HIS TEETH.
--- NOTE | 2020-11-16 10:00 | NUR ---
TURNING + REDIRECTING pt had pulled off his oxygen at this time, 02sats down to 85%. pts oxygen reapplied and pt redirected. pt lifted in bed and turned and positioned to comfort at this time by this RN and charge nurse Stephanie LEES. pt in bed, table and call light in reach, bed alarm on. pt given water to drink at this time, until he refused more.
--- NOTE | 2020-11-16 11:00 | NUR ---
REDIRECTING AND REAPPLYING OXYGEN AT THIS TIME pt had removed much of his clothes and was fidgeting with his block. pts oxygen cannula was removed as well. pts gown and blankets reapplied to protect the block. pts oxygen tube reapplied at this time and pt redirected. pt positioned to comfort. pt given water to drink, until pt refused more. pt in bed, table and call light in reach, bed alarm on, pt visible from nurses station.
--- NOTE | 2020-11-16 11:31 | NUR ---
CBG CHECKED AT THIS TIME pt is voiding more today than all of yesterdays shift. concerned for polyuria, since pt is a diabetic. CBG was 198. pt has no other obvious concerns or needs at this time. pt in bed, table and call light in reach, bed alarm on, pt visible from nurses station.
--- NOTE | 2020-11-16 12:00 | NUR ---
ROUNDING TRACK REPAIR WORKER in room with pt at this time feeding him lunch. pt appears content. call light in reach, bed alarm on. breathing even and unlabored, no s/sx distress. pts o2sats 95 on 4L NC.
--- NOTE | 2020-11-16 13:27 | NUR ---
PT IS UNDER PRECAUTIONS, WILL FOLLOW ABLE
--- NOTE | 2020-11-16 13:32 | NUR ---
ROUNDING pt is resting in bed with eyes closed, breathing even and unlabored, table and call light in reach.
--- NOTE | 2020-11-16 13:45 | NUR ---
NOTIFIED BY DR MELGAR FAMILY ARE NOW CONSIDERING PT NOT GOING TO [facility] FOR COVID THEY ARE CONCERNED HE WILL BE THERE ALONE AND FAMILY WON'T BE THERE. THEY ARE CONSIDERING COMFORT CARE.
--- NOTE | 2020-11-16 14:30 | NUR ---
TURNED + FED MORE + MED PASS pt turned at this time by this RN and LAND PLANNER. pt had no BM, bottom was clean. pt repositioned in bed to comfort. pt fed more of his remaining lunch at this time. pt given meds and able to take tablets crushed and in applesauce without difficulty. pt given several more sips of water and given fresh water at this time. pt in bed, bed in lowest position, bed alarm on, call light in reach, pt visible from nurses station.
--- NOTE | 2020-11-16 15:30 | NUR ---
SPOKE WITH DAUGHTER, ARA. SHE STATES THEY ARE HAVING A HARD TIME DECIDING WHAT TO DO. DISCUSSED PLACEMENT DAUGHTER STATES IT WOULD BE DIFFICULT FOR THEM TO CARE FOR PT, BUT DO NOT WANT HIM PLACED OUT OF THE AREA. DISCUSSED ONLY PLACEMENT AVAILABLE IS [facility]IGARD AT THIS TIME. HOSPICE DICUSSED AND DAUGHTER THINKS FAMILY WOULD PREFER THIS, SHE NEEDS TO DISCUSS WITH THEM. SHE WILL CALL CM TOMORROW AND UPDATE. I WILL CALL BOTH HOSPICES AND SEE WHICH ONE CAN ADMIT FIRST. DAUGHTER WILL DISCUSS PLAN WITH MOM. DAUGHTER STATES THEY ARE NOT READY FOR PT TO PASS AND WOULD LIKE HIM TO BE ABLE TO COME HOME. i QUESTIONED HER IF THEY WANT DNR/DNI AND SHE STATES YES THEY DO NOT WANT HIM INTUBATED OR CPR. DISCUSSED OVER THE PHONE AND COMPLETED POLST THERE IS NOT A FORM IN THE CHART. DAUGHTER WILL VISIT TOMORROW AND SIGN.
--- NOTE | 2020-11-16 15:30 | NUR ---
ROUNDING pt pulled off his oxygen again. o2sats maintained around 90% on RA at this time. So pts oxygen titrated down to 1L NC at this time, and now pt is able to maintain >93% on the 1L. pt given water to drink at this time, until pt refused more. pt in bed, table and call light within reach. bed alarm on. pt visible from nurses station.
--- NOTE | 2020-11-16 16:30 | NUR ---
TURN + ROUNDING pt turned at this time. pt repositioned in bed to comfort. pt had no BM, bottom clean and dry at this time. pt given warm blankets. pt given water to drink at this time, until pt refused water. pt in bed, table and call light in reach, bed alarm on, pt visible from nurses station.
--- NOTE | 2020-11-16 16:30 | NUR ---
DISCUSSED WITH DR HUFF AND UPDATED. CHART FAXED TO [facility] WITH ORDER, FACE SHEET, H&P, NOTES. I WAS UNABLE TO CONTACT [facility]. SPOKE WITH HILDA FROM [facility] AND THEY COULD ADMIT ON FRIDAY. REQUESTED IF PT IS DISCHARGED SOON IF THEY COULD GET EQUIPMENT INTO HOME PRIOR AND SHE STATES SHE WILL DISCUSS WITH THEIR PHYSICIAN.
--- NOTE | 2020-11-16 17:30 | NUR ---
ROUNDING pt in bed, eyes closed, breathing even and unlabored, table and call light in reach. bed alarm on. o2sats >95% on 1L NC. pt visible from nurses station.
--- NOTE | 2020-11-16 19:26 | NUR ---
ELMA Love STATES THAT HE GOT VERBAL ORDERS FROM DR HUFF TO DC CPOX. ORDERS PLACED AND CCU NOTIFIED.
--- NOTE | 2020-11-16 19:30 | NUR ---
pt fidgetting with tele/CPOX. O2 off nose, repositioned, awake, pleasantly confused.
--- NOTE | 2020-11-16 21:16 | NUR ---
resting, eys closed, no resp distress, O2 NC inplace, cpox dc'd earlier. bed alarm on. On respiratory precautions, call light at hands reach
--- NOTE | 2020-11-16 22:50 | NUR ---
IN TO ASST RN WITH VITALS AND NEW IV START, NO FURTHER NEEDS AT THIS TIME FOR ME
--- NOTE | 2020-11-16 23:56 | NUR ---
ARIAN LEES ATTEMPTED IV X3. RUI LEES ATEMPTED IV X2 WITH SUCCESS IN RIGHT FOREARM. PT TOLERATED WELL. IV FLUSHED WELL. ARIAN LEES IN ROOM
--- NOTE | 2020-11-16 23:59 | NUR ---
pt on room air sats 84-86%, back on 02 2LNC, turned and repositioned, lungs dim at bases and slight crackles expiratory. f/c patent. Pt pulled sl off. will restart. scds R leg, foot pumps L leg, alexa hose on bilat. edema at L hip, good cms. edema at L ankles. very tense, semi coop. all procedures explained to pt. pleasantly confused. Unable to restart IV site, Ally LEES able to restart SL. pt tolerated well. Pt spitted melatonin off X2, crushed and given w puding. Pt unable to suck from straw. spit sips of water given. mouth care, f/c care done Pt has left O2 on. sats 97%. eyes closed, smiles and tried to asnwer, word salad noted not applicable to situation. Bed alrm on. Aspiration and fall precautions in place. IV abx infusing at this time. call light at hands reach, pt unable to use. explained, unable to comprehend.
--- NOTE | 2020-11-17 02:00 | NUR ---
AWAKE, TRYING TO TAKE DRESSING THAT WAS APPLIED TO NEW IV SITE EARLIER INT HIS SHIFT. AREA COVERED WITH COBAN, KERLIX, OMAR WRAP AND DRESSING SLEEVE. PROCEDURE EXPLAINED. COOPERATIVE BUT UNABLE TO UNDERSTAND PROCEDURE. REPOSITIONED. BED ALARM ON
--- NOTE | 2020-11-17 02:18 | NUR ---
WAS IN PT RM, TIME PIECE REPAIRER NOTED PT PULLING AT IV SITE COVERAGE, ABLE TO DISTRACT PT AND REDIRECT, ALLOWED PT TO CHAT AND LEFT RM TO MONITER PT FROM NURSE STATION UNTIL RN RETURNED TO DESK
--- NOTE | 2020-11-17 05:58 | NUR ---
pt continues on respiratory isolation, covid+. O2 sats spot checks 80-96% . O2 1LNC on at imes as he takes it off, and desats to low 80's. back to mid 90's with 1LNC. lungs dim at bases. Pleasantly confused abnd unable to follow instructions, word salad at times. L hip edema, good cms L leg, faint pulses. has been turned, tolerated wel.., Pulled IV off, and restsrted after 5 tried. no adverse raction to IV abx. new IV SL site has been covered wtih coban, kerlix and marielle wrap as he picks at site and has almost pulled out again 2x. easily redirectable. unable to follows instructions. f/c patent, draining QS, slight edema and redness of scrotum noted, no new penile drainage noted. Bilat alexa hoses in place. scds R leg, foot pumps L foot. pt spitted meds out at begining of shift.Pt unable to suck from straw, tolerating small amounts of liquids. aspiration and fall precautions in place. call light at bedside. pt
--- NOTE | 2020-11-17 06:30 | NUR ---
Pt continues on respiratory isolation, covid+. O2 sats spot checks 80-96% . 1LNC on at imes as he takes it off, and desats to low 80's. back to mid 90's with 1LNC. lungs dim at bases. Pleasantly confused abnd unable to follow instructions, word salad at times. L hip edema, good cms L leg, faint pulses has been turned, tolerated wel.., Pulled IV off, and restsrted after 5 tried no adverse raction to IV abx. new IV SL site has been covered wtih coban, kerlix and marielle wrap as he picks at site and has almost pulled out again 2x. easily redirectable. unable to follows instructions. f/c patent, draining QS slight edema and redness of scrotum noted, no new penile drainage noted. Chivo alexa hoses in place. scds R leg, foot pumps L foot. pt spitted meds out at begining of shift.Pt unable to suck from straw, tolerating small amounts of liquids. aspiration and fall precautions in place. call light at bedside. pt is pleasantly confused, all procedures explained prior to, unable to assess degree of understanding, calm, resting at this time, O2 1LNC
--- NOTE | 2020-11-17 09:16 | NUR ---
PT AWAKE IN BED. NOT ORIENTED TO SELF, DATE OR SITUATION. ALTERNATES BETWEEN FULL SENTENCES AND WORD SALAD. MORNING MEDICATIONS GIVEN W/ APPLESAUCE. REMDESIVIR INFUSING INTO IV. PT REFUSING TO WEAR O2, PULLS OFF REPEATEDLY. 89% ON ROOM AIR. VITALS STABLE OTHERWISE. CATHETER CARE COMPLETE. PT REPOSITIONED FROM RIGHT SIDE TO BACK. WILL NOT REPOSITION TO LEFT SIDE IT IS PT'S PAINFUL SIDE D/T HIP FX. AIDE IN TO FEED PT BREAKFAST.
--- NOTE | 2020-11-17 11:00 | NUR ---
SPOKE WITH PT'S DAUGHTER, ARA, ABOUT PT'S CURRENT STATUS. DAUGHTER STATES THEY ARE STILL WORKING ON MAKING A DECISION WHETHER OR NOT THEY WANT TO MOVE FORWARD WITH [facility] OR CONSULT WITH HOSPICE. EXPLAINED TO DAUGHTER THAT PT HAS NOT BEEN EATING WELL, HAS PULLED IV'S OUT AND IS NON-COMPLAINT WITH O2. PT IS ALSO UNABLE TO BEAR ANY WEIGHT ON LLE, DOES NOT TOLERATE HOB ELEVATED PAST 45 DEGREES APPROX, WITHOUT PAIN. REFERRED DAUGHTER TO CASE MANAGEMENT.
--- NOTE | 2020-11-17 11:39 | NUR ---
ATTEMPTED TO CONTACT ARA MARVEL PATIENTS DAUGHTER. NO ANSWER, LEFT MESSAGE FOR PATIENTS DAUGHTER TO RETURN CARE.
--- NOTE | 2020-11-17 12:01 | NUR ---
PT STILL UNDER PRECAUTIONS. WILL FOLLOW ABLE
--- NOTE | 2020-11-17 12:50 | NUR ---
PER PERNELL AT [facility] THE PATIENT HAS BEEN MEDICALLY ACCEPTED TO THEIR FACILITY AT THIS TIME. PERNELL STATES THAT PART OF THE ADMISSION AUTHORIZATION PROCESS IS THAT THE FACILITY SPEAK TO THE FAMILY PRIOR TO ADMISSION. PERNELL STATE HE ATTEMPTED TO CONTACT ARANiyah GRIER AND AFSHAN ROSS (PATIENTS ) WITH NO RESPONCE BACK AT THIS TIME. I ADVISED PERNELL I WILL CONTINUE TO CONTACT ARA AT THIS TIME SO SHE CAN RETURN A CALL TO THE FACILITY. WILL UPDATE DR. HUFF.
--- NOTE | 2020-11-17 13:10 | NUR ---
THIS USPS LETTER CARRIER AT BEDSIDE TO ASSIST WITH LUNCH, PATIENT ATE ABOUT 5 BITES AND DRANK MOST OF THE CHOCOLATE DRINK. PATIENT IS ABLE TO COMMUNICATE THAT HIS BUTTOCKS ARE GETTING SORE. 2PA-PILLOW UNDER LEFT HIP FOR COMFORT. CALL LIGHT IN PATIENTS LAP, BED ALARM ON FOR SAFETY
--- NOTE | 2020-11-17 14:34 | NUR ---
THIS RN SPOKE WITH PATIENT NATHEN BULLOCK REGARDING TRANSFER OF PATIENT TO [facility]. ARA STATES SHE HAS DECIDED THAT SHE WILL NOT BE ABLE TO TRANSPORT THE PATIENT AT THIS TIME AND WOULD PREFER FOR HIM TO GO BY NON EMERGANT EMS TRANSFER. ARA NOTIFIED BY THIS RN THAT MEDICARE MAY OR MAY NOT PAY FOR THE TRANSFER BY EMS, ARA STATES SHE IS AWARE AND HAS MADE FINANCIAL ARRANGEMENTS WITH IN HER FAMILY. UPDATED ARA ON PATIENTS STATUS TODAY PER LORE HARMON RN. THIS RN TO THE DOOR WAY TO OBSERVE PATIENT, PATIENT SMILED, WAVED AND GAVE A THUMBS UP. DISCUSSED WITH ARA THE WITHDRAWL OF PATIENT MCMILLAN, 02 [address] HUFF THIS AM, ARA AGREES WITH THIS PLAN. ARA WOULD LIKE TO ASK DR. HUFF IF HE WOULD BE WILLING TO OBSERVE THE PATIENT OVER THE WEEKEND FOR ANY COVID SYMPTOMS BEFORE THE PATIENT TRANSFER TO [place]. THIS RN AGREES TO SPEAK WITH DR. HUFF, BUT EXPLAINS THAT PATIENT/FAMILY MAY BE RESPONSIBLE FOR THE REMANDER OF THE PATIENTS STAY IF MEDICARE DEAMS PATIENT HAS REACHED BASELINE. AGAIN ARA STATES THAT SHE IS AWARE THAT THIS COULD BE BILLED TO THE PATIENT AND SHE HAS MADE ARRANGEMENTS WITH FAMILY TO HELP WITH PAYMENT IF NEEDED. THIS RN TO OVER TO SPEAK WITH DR. HUFF, PER VERBAL CONVERSTATION DR. HUFF AGREES TO KEEP PATIENT OVER THE WEEKEND AND PLANS FOR DISCHARGE ON FRIDAY. MESSAGE LEFT FOR ARA REGARDING DECISION. THIS RN LEFT MESSAGE FOR PERNELL AT [facility] CONFIRMING PATIENTS DISCHARGE ON FRIDAY .
--- NOTE | 2020-11-17 15:30 | NUR ---
DR HUFF IN TO SEE PT. TALKED W/ MD ABOUT NOT DC'ING MCMILLAN CATH PT IS NOT ABLE TO BEAR WEIGHT ON LLE THEREFORE UNABLE TO TRANSFER TO COMMODE W/OUT BEING EXTREMELY PAINFUL. THERE IS ALSO REDNESS IN SCROTAL AREA PUTTING PT AT HIGHER RISK FOR SKIN BREAKDOWN IF INCONTINENT W/OUT MCMILLAN. AGREED, ORDERS TO LEAVE MCMILLAN IN AT THIS TIME.
--- NOTE | 2020-11-17 18:44 | NUR ---
PT REACHING FOR WATER, IN TO ASSIST PT. REMAINS PLEASANTLY CONFUSED. VSS. NO ACUTE CHANGES AT EVENING ASSESSMENT. FENTANYL PATCH REMAIN IN PLACE TO LEFT SHOULDER. TOSHIA HOSE ON BLE AND SCD ON RLE. RFA IV SALINE LOCKED. PT LIKELY TO DC TO NURSING FACILITY ON FRIDAY. BED ALARM ON, PT DOES NOT CALL APPROPRIATELY.
--- NOTE | 2020-11-17 21:45 | NUR ---
Pt continues on airborne isolation. On room air. picking at linen and pulling at scds tubing. f/c intact. Noted pt had red cored drainage over R arm, face, gown and linen. upon further investigation noted that pt had pulled IV sometime between 2029 when this RN peeked in room to do a visual check on pt and he declined he needed anything, pleasantly confused. 2x2 applied to RFA/wrist area former IV site. arms, face cleansed with warm water, gown and linen changed. All procedures explained, unable to assess degree of assimilatin to teaching being given due to confusion and word salad. Kept mask on during process. On room air, Lungs dim at bases and fine crackles at base. f/c patent. pt looking for" hard iron between my legs". Intact, draining yellow utine, sulma and redness at scrotal area still same as yesterday. edema to ankles and L hip no changes. alexa hose and heel protectors, scds R leg, foot pumps L foot. Repositoned and turned in bed. Took meds with applesauce, Tylenol given per L hip pain. Tolerated ensure, water and apple sauce well. no s/sx cough. Fall and aspiration precautins in place. call light at hands reach. hob elevated. pt unable to use call light.
--- NOTE | 2020-11-17 22:49 | NUR ---
EYES CLOSED, HOB ELEVATED, RESTING, NO FURTHER C/O PAIN. CALL LIGHT AND FLUIDS AT BEDSIDE, ROOMING IN
--- NOTE | 2020-11-17 23:46 | NUR ---
was fidgetting with blakets earlier, calmer, no facial s/sx distress. eyes closed at this time, on room air, bed alarm on, scds in place
--- NOTE | 2020-11-18 01:33 | NUR ---
Awake, on room air, fidgetting with sheets, repositioned. cooperative, bed alarm on
--- NOTE | 2020-11-18 02:00 | NUR ---
IN WITH RN TO ASSIST REPOSITIONING OF PT, BOOSTED AND PILLOW UNDER LEFT SIDE, PT PROVIDED WITH SIPS OF WATER, NO FURTHER NEEDS AT THIS TIME
--- NOTE | 2020-11-18 02:21 | NUR ---
pt more mobile in bed, on room air, left leg over railing, R leg crossed over towards L leg, pt laying in a jackniffed position in bed. Im trying to find Devi, procedure explaiined, word salad. Repositioned up in bed and turned. tolerated well. f/c intact. scds and foot pumps intact. pt ripped dressing that was placed over old R IV site, pulling at night PJ pants, f/c draining QS. tolerated sips of water. hob elevated.Continues on airborne isolation. pleasantly confused
--- NOTE | 2020-11-18 02:54 | NUR ---
calmer, eyes closed, resting, call light at bedside, scds inplace, bed alarm on
--- NOTE | 2020-11-18 04:37 | NUR ---
Dr cabrera notified that pt pulled iv out, "ok to leave it out"
--- NOTE | 2020-11-18 05:55 | NUR ---
PT CONTINUES ON AIRBORNE ISOLATION PRECAUTIONS. ONROOM AIR, LUNGS CLEAR DIM AT BASE, NO COUGH. NO BM SINCE ADMISSION. F/C PATENT, PT HAD BEEN PULLING AT IT, STILL IN PLACE, DRAINING QS. PULLED IV SITE OFF. MORE ALERT, STILL WORD SALAD. MORE ACTIVE IN BED. PT MANAGED TO PULL L LEG OVER RAILS AND RIGHT LEG OVER LEFT LEG, TRYING TO GET OUT OF BED, BED ALARM ON. SCDS IN PLACE, TOSHIA HOSE AND HEEL PROTECTORS. EDEMA TO L HIP AND DISCOMOFRT WHEN MOVING. WAS MEDICATED WITH TYLENOL X1 WITH GOOD PAIN RELIEF, TOOK MEDS WITH APPLESAUCE. TOLERATING SIPD OF FLUIDS. PLEASANTLY CONFUSED.
--- NOTE | 2020-11-18 07:31 | NUR ---
this rn received report from jeremías garcia. pt appears to be resting or at the very least is not picking at equipment at this time. respirations noted
--- NOTE | 2020-11-18 09:35 | NUR ---
THIS RN IN PTS ROOM DOING ASSESSMENT, VITALS, I&O'S- PT ABLE TO SWALLOW PILLS WITH BITE OF APPLESAUCE, THIS RN OFFERED PT A SIP OF WATER AND THEN PT PROCEEDED TO VOMIT X3. PT WAS SITTING UP WHEN THIS HAPPENED DUE TO RN SITTING PT UP TO TAKE PILLS. ROBER COULTER IN PTS ROOM TO ASSIST THIS RN IN CLEANING PT UP. FULL BED LINEN CHANGE COMPLETED AND FULL BED BATH COMPLETED. PT TOLERATED OKAY STATING "DONT KILL ME" BUT THEN PT CONTINUED TO NOT STRING SENTENCES TOGETHER RESULTING IN WORD SALAD. PT TURNED AND REPOSITIONED TO PROTECT AIRWAY IF PT TO VOMIT AGAIN. BED ALARM ON. PT APPEARS TO BE RESTING COMFORTABLY AFTER THE ORDEAL WITH GOOD NOTABLE RESPIRATIONS.
--- NOTE | 2020-11-18 14:04 | NUR ---
pt appears to be resting at this time with respirations noted and appears to be comfortable with no fidgeting noted.
--- NOTE | 2020-11-18 15:00 | NUR ---
this rn in pts room with veronika winters due to needing to do vitals and turn pt. until this time pt had been resting comfotably. pt tugging at block catheter. veronika winters to remove cath
--- NOTE | 2020-11-18 17:00 | NUR ---
pt appears to be resting comfortably at this time with good respirations noted
--- NOTE | 2020-11-18 20:03 | NUR ---
cont on airborne isolation. fidgetting with covers. bed alarm on
--- NOTE | 2020-11-18 20:23 | NUR ---
SURVEYING OR SPATIAL SCIENCE TECHNICIAN ROUNDING NOTE. PT RESTING IN BED AWAKE. PRIMARY RN AT BEDSIDE. NEEDS DENIED AT THIS TIME. CALL LIGHT IN REACH. WHITEBOARD UPDATED.
--- NOTE | 2020-11-18 20:26 | NUR ---
attend dry, more alert and follows instructions, still word salad. coop with assessment, on room air, lungs dim at basess, otherwise clear. abd soft bunny, had bm earlier am shift, L hip tender, decreaed edema, at hip and bilat ankles, alexa hose on. tolerateed liquids and meds in applesauce. aspirastion precautions in place. hob elevated. moving arms well and tried to bend l knee usp. medicated with tylenol 1000mg 3/10 flacc scale pain. watchint tv. bed alarm on.
--- NOTE | 2020-11-18 23:41 | NUR ---
continues on airborne isolation. resting, eys closed, no resp distress, on room air.Bed alrm on, threw covers to floor and kicked heel protectors off a few minuts ago. will leave heel protectors off, covers placed back on pt.
--- NOTE | 2020-11-19 01:39 | NUR ---
pt turned and repositioned. Incontinent of urine and large amount of soft bm. skin care and barrier cream applied. procedure explained, Pt confused, semicooperative. Calmer, no s/sx discomfort after being repositioned. took sips of ensure well, hob elevated. no cough. aspiration precautions in place. wearing tedhose. decreased edema to L hip noted. 2pa, very stiff all over. call light at hands reach
--- NOTE | 2020-11-19 04:43 | NUR ---
Pt more mobilein bed, threw linen and gown into floor, shredded attends off too. Incontinent of urine. positioned himself into a sideways jacknifed position, l leg sticking out from rails, was swing feet up and down. Procedure explained, pt confused semi cooperative. Repositioned in bed and turned. skin barrier applied, fresh attend and gown in place. Medicated with Oxycodone 5mg po 5/10 as per flacc scale. took meds with pudin, tolerated remainder of ensure and sip of water. aspiration precautions in place. tolerated well. coop using mask while changing. call light at hands reach, pt unable to use. Bed alarm on. warm blanket given. Continues on airborne isolation. alexa hoses in place and heel protectors back on.
--- NOTE | 2020-11-19 05:02 | NUR ---
Pt continues on Airborn isolation. pleasantly confused. On room air, lungs much improved, sats mid 90's. Medicated with Tylenol and Oxycodone per FLACC pain scale with good pain relief per L hip pain. Pt more mobile. has tried to get out of bed and reposion self in a jackniffed position in bed. Incontinent of urine and large bowel movene, ripped attends off and threw linens on floor 2x. tolerated meds crushed w pudin and ensure drink at small sips aspiration and fall precautions in place. Bed alarm on. All procedures explained to pt but unable to assess degree of understanding as he is confused, word rylie
--- NOTE | 2020-11-19 06:49 | NUR ---
Resting, eyes closed, shallow breathing, hob elevated, bed alarm on. aspiration and fall precautions in place
--- NOTE | 2020-11-19 07:31 | NUR ---
this rn received report from jeremías garcia. pt appears to be resting at this time with 13 respirations per min noted
--- NOTE | 2020-11-19 09:01 | NUR ---
THIS RN IN PTS ROOM WITH ROBER COULTER. STAFF ABLE TO CHANGE PTS BRIEFS AND DO A BED BATH AT THIS TIME. PT A BIT MORE AWAKE AND MORE COMBATIVE THIS AM. PT NOT COMPLIANT WITH CARE AND IS NOT REDIRECTABLE.
--- NOTE | 2020-11-19 09:15 | NUR ---
THIS RN NOTED THAT PT DOES DESAT ON ROOM AIR TO 88% BUT THEN DOES RECOVER. PT NOT REDIRECTABLE OR ABLE TO FOLLOW INSTRUCTIONS WHEN ASKED TO TAKE DEEP BREATHS.
--- NOTE | 2020-11-19 10:30 | NUR ---
THIS RN TO CHECK ON PT AT THE DOOR DUE TO ISOLATION PRECAUTIONS. PT LAYING IN BED AND HAS UNDRESSED HIMSELF AT THIS TIME. PT CONTENLY DEMENTED AT THIS TIME AND HAS NOT REMOVED HIS BRIEF. THIS RN WILL CHECK ON PT LATER. BED NADJA IS ON
[2020-11-19] MEDS ORDERED: OXYCODONE HCL5 MG PO (11:53)
[2020-11-19] MEDS ORDERED: FENTANYL1 EAC4 TD (11:53)
[2020-11-19] MEDS ORDERED: ACETAMINOPHEN500 MG PO (11:54)
[2020-11-19] MEDS ORDERED: TRAZODONE HCL50 MG PO (11:54)
[2020-11-19] MEDS ORDERED: DEXAMETHASONE6 MG PO (11:55)
--- NOTE | 2020-11-19 13:37 | NUR ---
THIS RN IN PTS ROOM WITH ROBER COULTER TO DO PTS VITALS, I&O, ASSESSMENT. PT A LITTLE MORE COOPERATIVE WITH INSTRUCTIONS AT THIS TIME. PT AUDILBLY STATING "OW" THIS RN TO PROVIDE PT WITH 1 OXYCODONE FOR PAIN. PT ABLE TO TURN A BIT BETTER NOW THAT HE IS COOPERATING WITH STAFF AT THIS TIME. PROVIDED PT WITH CATHIE CARE DUE TO INCONTIENCE. ROBER COULTER ALSO IN ROOM TO FEED PT. PT ON ROOM AIR WITH NO NOTED DIPS IN O2SATS PT FLOATED HIPS TO IMPROVE SKIN- NO NOTED BREAKDOWN AT THIS TIME. PT TO EAT ALL OF [place]/ ENSURE DRINK- TOLERATED WELL
--- NOTE | 2020-11-19 17:58 | NUR ---
pt her for left femoral fx from fall at home, with resp failure and pnemonia resolved. covid + - improved. current dementia/alzheimers confusion - bed alarm, inc urine/stool - fidgits - poor intake, non ambulatory - does not follow commands. Dr. zaragoza consult complete - awaiting dc tomorrow Friday to snf, cont. decadron for 4 more days, fentanyl patch for pain, stopped lasix, losartan and family discussed poor prognosis and are prepared to transition to hospice care when the time comes.
--- NOTE | 2020-11-19 19:18 | NUR ---
FED PATIENT CHOCOLATE ENSURES WITH A SPOON FOR BREAKFAST, LUNCH AND DINNER. HE DID DRINK A LITTLE BIT OF WATER.
--- NOTE | 2020-11-19 21:11 | NUR ---
cont on airborne isolation precaution, pleasantly confused, took meds crushed in pudin, as per FLACC pain scale 4/10 pain L hip medicated with Tylenol 1000mg po. Incontinent of urine, attends changed. procedure explained. semicooperative, unable to comprehend. turned and repositioned. Bed alrm on. Pt took gown off and linens in floor, heel protectors kicked off, will leave off and replace later. lungs dim at bases on room air. no distress
--- NOTE | 2020-11-20 00:45 | NUR ---
RESTING, EYS CLOSED, CALM, ON ROOM AIR, NO DISTRESS, BED ALARM ON. CALL LIGHT AT BEDSIDE
--- NOTE | 2020-11-20 04:26 | NUR ---
Pt left leg hanging over rails, linens wet and on floor, pt had shearded his attends. Incontinent of large amounts of urine, fresh linen and attends, skin care and barrier cream. procedure explained, anxious, fearfuls, reassured, semi cooperative. Turned and repositioned in bed. Medicated with Oxycodone 5mg po per 5/10 FLACC pain scale. took meds crushed in applesauce. tolerated fluids well. fall and aspiratin precautions in place
--- NOTE | 2020-11-20 06:06 | NUR ---
Pt continues on Airborne Isolation precautions, confused, easily redirectable. Incontinent of urine. has shredded his attends, and threw linen onto floor. moving legs more and more active inbed, able to get himself into a jacknefed position. repositioned and turned, semicoop. all procedures explained. unable to comprehend instructions due to cognitive deficiencies. L hip edema decreaed. alexa hose in place. tried to take off. heel protectors off as he kicked them off several times. Bed alarm on. tolerating fluids. aspiration and fall precautions in place. Was medicated with Tylenol and Oxycodone pre pain L hip, effective. meds crushed and given w franky. tolerating well
--- NOTE | 2020-11-20 07:38 | NUR ---
SHIFT REPORT FROM NURSE DON. PT IS SLEEPING IN SUPINE POSITION. NO APPARENT SIGNS OF DISTRESS. BED ALARM ON FOR SAFETY.
--- NOTE | 2020-11-20 09:06 | NUR ---
SPOKE WITH ARA GRIER PATIENT DAUGHTERS REGARDING TRANSFER OF PATIENT TO [facility]. PATIENTS DAUGHTER AGREES TO TRANSFER BY NON EMERGANT EMS. PER PERNELL AT [facility] ARE READY TO ACCEPT PATIENT TODAY. WILL HAVE MD COMPLETE ORDERS. THIS RN TO COMPLETE NON EMERGIANT EMS TRANSFER FORM. CARON MOISE RN NOTIFIED AND SHE STATES SHE WILL CONTACT [facility] TO ARRANGE TRANSFER PROCESS.
--- NOTE | 2020-11-20 09:17 | NUR ---
PATIENT AWAKE VITALS DONE WOULD NOT EAT OR DRINK MUCH. BRIEF CHANGED
--- NOTE | 2020-11-20 09:41 | NUR ---
SPOKE WITH PERNELL FROM [facility]. HE STATES THEY ARE ABLE TO ACCEPT PATIENT FOR ADMIT TODAY. DISCUSSED THAT WE WILL ARRANGE TRANSPORTATION AND GIVE THEM AN ETA. FAXED SNF ORDERS, PASSR, COPY OF RX, COPY OF POLST TO THEM AT [phone]. FAX CONFIRMATION RECEIVED 11/20/20 927AM.
--- NOTE | 2020-11-20 10:03 | NUR ---
UPDATED DAUGHTER ARA [phone] BY PHONE. SNF HAS ACCEPTED IN [facility], EMS CREW IS BEING ARRANGED AT [facility] DEPARTMENT. WE DO NOT KNOW TIME TO LEAVE OF YET. SHE IS GOING TO COME UP IN THE NEXT HOUR OR SO AND BRING SOME CLOTHES AND THINGS FOR HIM TO TAKE.
--- NOTE | 2020-11-20 10:10 | NUR ---
CHART PACK WITH CLINICALS, ORDERS, PASSR, RX, POLST IN ENVELOPE AND LEFT AT NURSES STATION WITH STAFF.
--- NOTE | 2020-11-20 10:24 | NUR ---
IN ROOM FOR MORNING MEDS AND TO ADMINISTER PAIN MEDICATION IN PREPARATION FOR TRANSPORT. PT IS ALSO BECOMING MORE ACTIVE AND VOCAL POSSIBLY D/T PAIN. PT SPEAKS IN BROKEN SENTENCES WITH MINIMAL UNDERSTANDING. LUNG SOUNDS CLEAR, BOWEL TONES ACTIVE, CMS INTACT, VSS. TRANSPORT WILL REPORTEDLY BE HERE WITHIN HALF AN HOUR. THIS NURSE AND DERRICK MAN IN ROOM.
--- NOTE | 2020-11-20 10:54 | NUR ---
THIS NURSE AND CRAB CATCHER ASSISTED EMS WITH TRANSFER OF PT TO TRANSPORT [facility]. PT DICHARGED HOSPITAL AT THIS TIME. PT'S DAUGHTER ARRIVES WITH PT'S BELONGINGS. THIS RN GUIDES PT'S DAUGHTER TO [facility].
--- NOTE | 2020-11-20 13:17 | NUR ---
CHECKING ON PT DISCOVERED HE WAS BEING DC'D TO ANOTHER FACILITY. HAVE BEEN UNABLE TO VISIT PT DUE TO PRECAUTIONS
== END 2020-11-20 10:50 | DRG 177 ==
LOC: ED 19:26 → MS 19:27 → ED 22:00 → MS 22:44
PROVIDERS: ADMIT Internal Medicine; ATTEND Internal Medicine
PROC: XW033E5 Introduction of Remdesivir Anti-infective into Peripheral Vein, Percutaneous Approach, New Technology Group 5 (ICD-10-PCS; principal; 2020-11-14)
DX: U07.1 COVID-19 (principal); S72.002A Fracture of unspecified part of neck of left femur, initial encounter for closed fracture; J12.82 Pneumonia due to coronavirus disease 2019; J12.81 Pneumonia due to SARS-associated coronavirus; J96.01 Acute respiratory failure with hypoxia; G30.9 Alzheimer's disease, unspecified; F02.80 Dementia in other diseases classified elsewhere, unspecified severity, without behavioral disturbance, psychotic disturbance, mood disturbance, and anxiety; E11.9 Type 2 diabetes mellitus without complications; E03.9 Hypothyroidism, unspecified; I10 Essential (primary) hypertension; I25.10 Atherosclerotic heart disease of native coronary artery without angina pectoris; W18.30XA Fall on same level, unspecified, initial encounter; Z66 Do not resuscitate; Z87.891 Personal history of nicotine dependence; Z95.1 Presence of aortocoronary bypass graft; Z88.0 Allergy status to penicillin; Z88.5 Allergy status to narcotic agent; Z79.899 Other long term (current) drug therapy
CPT/HCPCS: 51701; 71045; 73502; 73560; 80053; 81001; 83605; 84484; 85025; 85651; 86850; 86900; 86901; 87040; 93005; 93010; 93970; 94760; 99285-25; C9803; J0131; J1650; J1940; J3010; J7030; J7050; J7121; J8540; U0003